=== PATIENT | female | born 1970 | race Caucasian/White ===

== ENCOUNTER 2019-10-19 08:52 | Emergency (ER) | payer OTHER ==
[~2019-10-19] VITALS: Ht 170.2 cm; Wt 69.9 kg
[2019-10-19] MEDS ORDERED: TOPROL XL25 M1 (09:50)
[2019-10-19] MEDS ORDERED: AIRBORNE EFFER1 EACH PO (12:13)
[2019-10-19] MEDS ORDERED: TESSALON PERLE100 M1 PO (12:13)
[2019-10-19] MEDS ORDERED: MUCINEX DM ER1 EAC1 PO (12:13)
[2019-10-19] MEDS ORDERED: VENTOLIN HFA18 GM IH (12:13)
[2019-10-19] MEDS ORDERED: VISTARIL25 MG PO (12:19)
== END 2019-10-19 13:10 | disposition home or self-care (01) ==
LOC: ER 08:52
DX: J06.9 Acute upper respiratory infection, unspecified (principal); Z20.828 Contact with and (suspected) exposure to other viral communicable diseases